=== PATIENT | male | born 1965 | race African-American/Black ===

== ENCOUNTER 2022-02-03 08:43 | Emergency (ER) | payer SELFPAY ==
[~2022-02-03] VITALS: Ht 180.3 cm; Wt 87.0 kg
[2022-02-03] MEDS ORDERED: LIDOCAINE 5% PATCH TOP SCH (09:30)
[2022-02-03] MEDS ORDERED: KETOROLAC 60MG/2ML VIAL IM ONE (09:30)
[2022-02-03] MEDS ORDERED: CYCLOBENZAPRINE 10MG TABLET PO ONE (09:30)
[2022-02-03] MEDS ORDERED: CYCL10TA7 MT (10:23)
[2022-02-03] MEDS ORDERED: LIDO700A30 TP (10:23)
[2022-02-03] MEDS ORDERED: NAPR-1176 MT (10:23)
[2022-02-03 10:45] VITALS: BP 138/75
== END 2022-02-03 10:46 | disposition home or self-care (01) ==
LOC: ER 08:43 → EDSEX 08:43 → ER 10:46
DX: S23.3XXA Sprain of ligaments of thoracic spine, initial encounter (principal); I10 Essential (primary) hypertension; X58.XXXA Exposure to other specified factors, initial encounter; Y93.89 Activity, other specified; Y92.89 Other specified places as the place of occurrence of the external cause; Y99.8 Other external cause status
CPT/HCPCS: 96372; 99283; J1885